=== PATIENT | female | born 1995 | race Two or more races ===

== ENCOUNTER 2023-12-17 15:02 | Emergency (ER) | payer SELFPAY ==
[2023-12-17 15:10] VITALS: BP 141/90; PULSE 69; RESP 18; TEMP 99.1; BMI 37.0
== END 2023-12-17 16:55 | disposition home or self-care (01) ==
LOC: JERFT 15:02
DX: S09.90XA Unspecified injury of head, initial encounter (principal); W21.00XA Struck by hit or thrown ball, unspecified type, initial encounter
CPT/HCPCS: 99283-25